=== PATIENT | male | born 1950 | race Caucasian/White ===

== ENCOUNTER 2017-07-04 07:43 | Day surgery (SDC) | payer MEDICARE ==
[~2017-07-04] VITALS: Ht 182.9 cm; Wt 105.1 kg
[2017-07-04] MEDS ORDERED: IOHEXOL 350 MG/ML 100 ML BTL (for Cath Lab) OTHER ONE (07:44)
[2017-07-04] MEDS ORDERED: IOHEXOL 350 MG/ML 50 ML BTL (for Cath Lab) OTHER ONE (07:44)
[2017-07-04 08:32] VITALS: BP 192/97; PULSE 77; RESP 18; TEMP 98.1; O2SAT 96
[2017-07-04] MEDS ORDERED: FISHCAP4 PO (08:42)
[2017-07-04] MEDS ORDERED: HYDR25TA5 PO (08:42)
[2017-07-04] MEDS ORDERED: NITR0.4S SL (08:42)
[2017-07-04] MEDS ORDERED: LOSA100T PO (08:42)
[2017-07-04] MEDS ORDERED: ASPI325T33 PO (08:42)
[2017-07-04] MEDS ORDERED: ATOR20TA15 PO (08:42)
[2017-07-04 08:59] LABS: BASOPHIL % 0.9 % (0.0-2.0); EOSINOPHIL # 0.1 TH/MM3 (0-0.4); EOSINOPHIL % 1.3 % (0.0-4.0); HEMATOCRIT 43.4 % (39.0-51.0); HEMO FLAGS DIFF FINAL; LYMPH % 31.6 % (9.0-44.0); LYMPHOCYTE # 1.7 TH/MM3 (1.0-4.8); MEAN CELL VOLUME 89.5 FL (80.0-100.0); MEAN CORPUSCULAR HEMOGLOBIN 30.1 PG (27.0-34.0); MEAN CORPUSCULAR HGB CONC 33.7 % (32.0-36.0); MONO % 10.8 % (0.0-8.0); NEUT % 55.4 % (16.0-70.0); PLATELET COUNT 164 TH/MM3 (150-450); RED BLOOD COUNT 4.85 MIL/MM3 (4.50-5.90); RED CELL DISTRIBUTION WIDTH 13.7 % (11.6-17.2); WHITE BLOOD COUNT 5.4 TH/MM3 (4.0-11.0)
[2017-07-04 09:08] LABS: PROTHROMBIN TIME - PATIENT 11.6 SEC (9.8-11.6)
[2017-07-04 09:14] LABS: BICARBONATE 27.3 MEQ/L (21.0-32.0); POTASSIUM 3.5 MEQ/L (3.5-5.1)
[2017-07-04] MEDS ORDERED: ASPIRIN 325 MG TAB PO SCH (09:30)
[2017-07-04] MEDS ORDERED: NS 1000P @30 MLS/HR (KVO) IV SCH (09:30)
[2017-07-04] MEDS ORDERED: MIDAZOLAM HCL 2 MG/2 ML VIAL ONE (10:56)
--- NOTE | 2017-07-04 11:50 | CATHPROC ---
[employer] HIS Report Study Information Study Number Admission Scheduled Start Study Start [id number] Jul 04 2017 7:43AM 07/04/2017 Jul 04 2017 10:35AM Marydel Service Cardiac Catheterization Admit Source Facility Department Other [facility] - Log Loader Physician and Clinical Staff Initial Marike Valentin Wire Charger Jess Figueredo,TOMASZ Recorder Loan Cunha,RT(R) Scrub Chaka Trujillo RCIS(BS) Procedures Performed Procedure Location (Site) Vessel Name Angiogram LV LV Ventricle Coronary Angiograms LCA Left Coronary Coronary Angiograms RCA Right Coronary Equipment Time Broomcorn Grader Description Size Mfg Part Number Used/Scraped [id number] 10:55 NOEL PARIKH SWAN DEBORAH CATHETER FR 7 Used *[id number] TRANSDUCER, TRUWAVE [id number] 10:55 NOEL PARIKH * Used W/STOCKCOCK *[id number] TRANSDUCER, TRUWAVE [id number] 10:55 NOEL PARIKH * Used W/STOCKCOCK *[id number] [id number] *[id number] [id number] *[id number] [id number] *[id number] PIGTAIL ANG. 145 INFINITI 534-652S CATHETER *[id number] 11:32 DAIG/[facility]. [facility]UL[facility] MEDICAL ANGIOSEAL, FR6 VIP FR 6 Used *[id number] 10:55 [employer] PACK, CCL CUSTOM * Used *[id number] 10:55 [employer] PACER PEN, SKIN DUAL W/ RULER * Used *[id number] PSI-6F-11- 11:03 [employer] MEDICAL SHEATH, FR6.5 PRELUDE 11CM FR 6.5 038ACT Used *[id number] PSI-7F-11- 11:07 [employer] MEDICAL SHEATH, FR7.5 PRELUDE 11CM FR 7.5 11CM Used [id number] 10:55 [employer] MEDICAL WIRE, 3MMJ .035 180CM 180CM Used *[id number] 10:55 NAM[employer] MANIFOLD, 2 PORT * Used *[id number] 10:55 NAM[employer] MANIFOLD, 4 PORT * Used *[id number] 10:55 [employer] OMNIPAQUE, 350 MG, 100ML 100ML [id number] Used [id number] 10:55 [place] [employer] BL[employer]ET,WARM AIR CCL * Used *[id number] Equipment Model, Serial, Lot Number and Expiration Data Description Model Number Serial Number Lot Number Expiration Date FRANSISCA BARCLAY [facility] [id number] 04-18-2018 History: Current Medications Medication Dosage/Unit Route Frequency Last Date/Time Taken Statins (any) ASA History: Allergies Allergy Reaction clopidogrel History: Risk Factors Family History of Hypertension Dyslipidemia Previous [place] Previous Heart Failure Premature CAD Yes Yes No No No Prior Valve Prior PCI Prior PCIDate Prior CABG Surgery No Yes 01/25/2012 No Cerebrovascular Peripheral Artery Chronic Lung On Dialysis Diabetes Disease Disease Disease No No No No No History: Stress Tests Stress or Imaging Studies Performed No History: Other Current Smoker Method Quit Packs a Day Years Used Pack Years No Cigarettes 40 Years Ago 1 15 15 Labs Hgb (g/dl) Hct (%) WBC (l/cumm) Platelets (thousands) 11.60-17.00 35.00-51.00 4.00-11.00 150.00-450.00 14.6 43.4 5.4 164 Glucose (mg/dl) BUN (mg/dl) Creatinine (mg/dl) BUN:Creatinine (1:x) 74.00-106.00 7.00-18.00 0.50-1.30 10.00-20.00 116 19 1.1 17.3 Na (meq/l) K (meq/l) 136.00-145.00 3.50-5.10 138 3.5 INR (PTT:PT) 0.90-1.10 1 CPK-MB (ng/ML) 0.50-3.60 Not Drawn Medication Medication Total Dose (Bolus/Oral) Medication Total Dosage/Unit 1% XYLOCAINE 20 mL VERSED 1 mg Medications (Bolus/Oral) Medication Time Given Dosage/Unit Administered By Reason 07/04/2017 10:58:00 VERSED 1 mg Jess Figueredo AM 1 mg VERSED given in lab by Jess Figueredo RN in Left Antecubital via Peripheral IV. Ordered by Markie Colmenares. 07/04/2017 10:59:00 1% XYLOCAINE 20 mL Jess Figueredo AM 20 mL 1% XYLOCAINE given in lab by Jess Figueredo, TOMASZ in Right Groin via Subcutaneous. Ordered by Markie Sands. Medication (Drip) Medication Time Given Dosage/Unit Concentration/Unit Diluent (ml) Solution 07/04/2017 10:46:03 IV Solutions 50 mL (IV) NaCl .9 AM IV Solutions given in lab by Jess Figueredo RN in Left Antecubital via Peripheral IV. Pump/Drip Liam w using NaCl .9. Ordered by Markie Aguirre. Initial Case Assessment Cardiovascular HR Rhythm Chest Pain 65 sr 0 Edema Present Skin color Skin None Normal Warm Dry Circulatory - Right Pulses Dorsalis Pedis Femoral 3 3 Scale (0,1,2,3,4,d) Circulatory - Left Pulses Dorsalis Pedis Femoral 3 3 Scale (0,1,2,3,4,d) Neurological State Oriented to time-place- Alert Moves all extremities person Respiration - General Respiration Rate SpO2 (%) (B/min) 12 98 Chronological Log Time Study Chronological Log 10:42:00 MD arrived. 10:42:32 Patient arrived via Bed. 10:45:52 Patient Name, D.O.B, / Armband Verified By R.N. 10:45:53 Consent signed by the physician and the patient and verified by the Log Loader staff. 10:45:53 Pre-op and post- op instructions given; patient acknowledges understanding of instruction s. Verbal Stimulation=~VERBAL~ Physical Stimulation=~PHYSICAL~ Airway=~AIRWAY~ Respiration=~RESP IRATION~ 10:45:54 TOTAL=~TOTAL~. (0=absent, 1=limited, 2=present) 10:45:57 Patient has been NPO for Less than 6Hrs. 10:45:58 Skin Breakdown- none per pt 10:45:58 Patient Warmer Placed on the Table. 10:46:02 A # 20 IV was noted in the Antecubital (left). Grade = 0 IV Solutions given in lab by Jess Figeuredo, RN in Left Antecubital via Peripheral IV. Pump/Dr ip Flow using NaCl .9. 10:46:03 Ordered by Markie Aguirre. 10:46:04 History and physical on the chart or being dictated. Assessment: Initial Case, HR=65 BPM, Rhythm=sr, Chest Pain=0, Edema=None, Color=Normal, Skin = Warm, Dry Right Pulses: Harrison Ped=3, Femoral=3 10:46:05 Left Pulses: Harrison Ped=3, Femoral=3 Neurological: State=Alert, Ox3, BOJORQUEZ Respiration: Resp=12 B/min, SpO2=98 % 10:50:00 Bilateral groins prepped with 2% chlorhexidine, and draped after a 3 minute waiting time. Vitals capture started with the following parameters, Patient=Adult, Interval=5 min, Initial Pr wvfrhs=367 mmHg, 10:55:28 Deflation Rate=5 mmHg, Cuff placed on Left Arm 10:55:34 Reference ECG taken 10:56:45 HR=74 bpm, BLWW=588/104 mmhg, SpO2=99.0 %, Resp=18 B/min Time Out. Correct patient, correct procedure, correct physician, power injector loaded, or not loaded with contrast with 10:57:07 surgical team present. Time Out Concurred by MD and individual staff in procedure. 10:58:00 1 mg VERSED given in lab by Jess Figueredo RN in Left Antecubital via Peripheral IV. Orde red by Markie Aguirre. 10:58:00 Case Start 10:59:00 20 mL 1% XYLOCAINE given in lab by Jess Figueredo RN in Right Groin via Subcutaneous. Ord ered by Markie Aguirre. 11:01:11 HR=72 bpm, AFIX=985/86 mmhg, HbO3=497.0 %, Resp=11 B/min 11:01:58 Access site was Right Femoral Artery. 11:02:06 A SHEATH, FR6.5 PRELUDE 11CM FR 6.5 was advanced into the Fem Art (right) using the Percuta neous technique. 11:02:51 Pressure channel 1 zeroed. 11:06:10 HR=62 bpm, XHGV=546/81 mmhg, SpO2=98.0 %, Resp=9 B/min 11:06:30 Access site was Right Femoral Vein. A SHEATH, FR7.5 PRELUDE 11CM FR 7.5 11CM was advanced into the Fem Vein (right) using the Percu taneous 11:06:43 technique. A SWAN DEBORAH CATHETER FR 7 was advanced over a wire. OMNIPAQUE, 350 MG, 100ML 100ML was used for 11:10:25 injections. Recorded Pressure: RA, HR=61, Condition=Condition 1 11:11:02 (Right Atrium) RA 11:11:07 HR=61 bpm, DEIY=599/81 mmhg, SpO2=99.0 %, Resp=12 B/min Recorded Pressure: RV, HR=61, Condition=Condition 1 11:11:24 (Right Ventricle) RV Recorded Pressure: MPA, HR=62, Condition=Condition 1 11:11:43 (Main Pulmonary Artery) MPA 18/08/21 Recorded Pressure: PCW, HR=60, Condition=Condition 1 11:12:05 (Pulmonary Capillary Wedge) PCW Thermo CO: CO=5.6 l/m, HR=60 bpm, Condition=Condition 1. Used in calculation. 11:13:47 Equipment: Description and Size=SWAN DEBORAH CATHETER FR 7, Type=Bath Probe, CC=0.579 Injectant: Temp=19.0 - 22.0 Celsius, Volume=10.0 ml Thermo CO: CO=5.6 l/m, HR=60 bpm, Condition=Condition 1. Used in calculation. 11:14:31 Equipment: Description and Size=SWAN DEBORAH CATHETER FR 7, Type=Bath Probe, CC=0.579 Injectant: Temp=19.0 - 22.0 Celsius, Volume=10.0 ml 11:15:08 [place] Deborah Catheter Removed A PIGTAIL ANG. 145 INFINITI CATHETER FR 6 was advanced over a wire. OMNIPAQUE, 350 MG, 100ML 10 0ML was 11:16:03 used for injections. 11:16:06 HR=61 bpm, NRXK=821/87 mmhg, SpO2=98.0 %, Resp=8 B/min Recorded Pressure: LV, HR=61, Condition=Condition 1 11:17:05 (Left Ventricle) LV 144/1/14 11:19:16 The LV was injected at 10 cc/sec for a total of 40. OMNIPAQUE, 350 MG, 100ML 100ML used. Recorded Pressure: LV, Ao, HR=78, Condition=Condition 1 11:20:09 (Left Ventricle) LV 158/7/19, (Aorta) Ao 163/88/119 11:20:26 Catheter was removed 11:21:09 HR=73 bpm, HIVF=138/80 mmhg, SpO2=99.0 %, Resp=10 B/min A JL 5.0 INFINITI CATHETER FR 6 was advanced over a wire. OMNIPAQUE, 350 MG, 100ML 100ML was us ed for 11:21:21 injections. 11:23:16 The LCA was injected and visualized at various angles. OMNIPAQUE, 350 MG, 100ML 100ML used . Recorded Pressure: Ao, HR=75, Condition=Condition 1 11:24:08 (Aorta) Ao 140/69/96 11:26:10 HR=81 bpm, JHSN=345/80 mmhg, SpO2=99.0 %, Resp=11 B/min 11:27:16 Catheter was removed A 3DRC INFINITI CATHETER FR 6 was advanced over a wire. OMNIPAQUE, 350 MG, 100ML 100ML was used for 11:27:26 injections. 11:29:07 The RCA was injected and visualized at various angles. OMNIPAQUE, 350 MG, 100ML 100ML used . 11:30:10 Catheter was removed 11:30:33 An injection in the Fem Art (right) was made through the SHEATH, FR6.5 PRELUDE 11CM FR 6.5. 11:31:11 HR=80 bpm, FSRN=510/78 mmhg, ZmV7=903.0 %, Resp=18 B/min 11:32:12 ANGIOSEAL, FR6 VIP FR 6 placement in the Fem Art (right) 11:33:39 Case End 11:36:10 HR=72 bpm, EODB=599/87 mmhg, SpO2=97.0 %, Resp=22 B/min 11:40:57 Vitals capture stopped. 11:41:09 Venous Sheath left in place, will be removed in Holding Area 11:41:22 Sterile dressing applied to site 11:41:26 No case complications noted. 11:41:29 Cine recording checked. 11:41:31 Bedside Report will be given. 11:42:32 A Left and Right Heart Cath was performed. 11:42:52 Patient moved to [facility] End Study - Contrast Media Used In Study Contrast Total Opened (mL) Total Used (mL) Total Wasted (mL) Omnipaque 150 150 0 End Study - Maximum Contrast Load Max Contrast Load (mL) 477.7 End Study - Radiation Exposure Fluoro Time (minutes) 3.5 End Study - Patient Disposition Complications Transferred To Interventional Outcome No Telemetry Bed No attempt made
[2017-07-04] MEDS ORDERED: SODIUM CHLOR 0.9% 1000 ML INJ 1,000 ML IV SCH (11:52)
[2017-07-04] MEDS ORDERED: ONDANSETRON HCL 4 MG/2 ML VIAL IV PUSH PRN (12:00)
[2017-07-04] MEDS ORDERED: MISC INFORMATION XX ONE (12:00)
--- NOTE | 2017-07-04 12:10 | MA ---
cc: SHAHRAM OCHOA SOHIT K. MD WILSON, VANCE E. M.D. DATE 07/04/2017 PROCEDURE PERFORMED Left heart catheterization, right heart catheterization, left ventriculography, coronary angiography, right femoral angiography with Angio-Seal placement. BRIEF HISTORY Chinmay Weston is a 66-year-old man followed by Dr. Ochoa. He has had mitral regurgitation getting progressively worse and is now needing surgery to repair or replace his mitral valve. DESCRIPTION OF PROCEDURE The patient was brought to the cardiac laborer stores in a fasting state. The right groin was prepped and draped in sterile fashion. Using 1% lidocaine for local anesthesia a 6.5-Nepali sheath was inserted in the right femoral artery and right femoral vein requiring only single front wall sticks. Right heart catheterization was then performed in standard fashion using a [place]-Kyung catheter. Cardiac outputs were obtained by thermodilution technique. The [place]-Kyung catheter was then removed. Left ventricular pressure was then recorded using a pigtail catheter followed by left ventriculography and then a pullback. Coronary angiography was then completed using a left 5-Chirag for the left coronary artery and a 3DRC for the right coronary artery. Angiography of the right femoral artery was then performed via the sheath followed by uncomplicated Angio-Seal placement. The venous sheath is being pulled manually. Cardiothoracic surgeon Dr. Garza was consulted for surgery. There were no complications. ESTIMATED BLOOD LOSS 5 cc. TOTAL CONTRAST LOAD 150 cc. FINDINGS I. HEMODYNAMICS: Right atrial pressure was 6/2 with mean of 1. Right ventricular pressure was 30/1 with an end-diastolic pressure of 14. Pulmonary artery pressure was 30/11 with a mean of 21. Pulmonary capillary wedge pressure at A-wave was 15, V-waves of 23 and a mean of 14. Left ventricular pressure was 158/7 with an end-diastolic pressure of 19. Aortic pressure was 140/69 with a mean of 96. During pullback from the left ventricle to the aorta there was no gradient. II. LEFT VENTRICULOGRAPHY Left ventriculography shows a dilated left ventricle with an ejection fraction about 50% with 4+ mitral regurgitation. There is mild to moderate coronary calcification. III. CORONARY ANGIOGRAPHY Left main coronary artery has about 20% ostial disease. The left main bifurcates into the LAD and circumflex vessels. The LAD has about 30% proximal stenosis. There is a stent spanning the first septal banquet attendant branch which is patent. The mid-LAD has two 70% stenoses. There is a diagonal branch that comes off very early from the LAD that is small caliber but has 80% disease and may or may not be graftable based on its size. The distal LAD is small in caliber but graftable. The circumflex artery has a very tiny marginal branch and then a 80-90% stenosis and then after that the circumflex bifurcates to a small distal vessel and an obtuse marginal branch which appears large enough to be grafted but is somewhat small caliber. The right coronary artery is dominant and has several stents visible in the mid-location. The mid vessel is diffusely diseased and there is one spot with 80% stenosis. Distally the right coronary artery has good caliber and gives off a very large posterolateral branch and medium-sized posterior descending artery branch. The distal right coronary artery is an excellent target for bypass. CONCLUSION 1. Hemodynamics are notable for a mildly elevated left ventricular end-diastolic pressure and tall V-waves on the wedge tracing. Cardiac output was 5.6 liters per minute. 2. LV ejection fraction about 50% with mild dilatation. 3. 4+ mitral regurgitation. 4. Three-vessel coronary artery disease. RECOMMENDATIONS Bypass surgery with graft to the LAD, circumflex marginal branch and distal right coronary artery and possibly also the diagonal with mitral valvular either repair or replacement. MD MARINA Roberts/TOLU /11:46 AM /11:53 AM
--- NOTE | 2017-07-04 15:54 | PD.CAR.PN ---
CVT Progress Note Subjective/Hospital Course: sts data discussed with pt RISK SCORES About the STS Risk Calculator Procedure: MV Replacement + CAB Risk of Mortality: 3.082% Morbidity or Mortality: 28.676% Long Length of Stay: 13.82% Short Length of Stay: 17.243% Permanent Stroke: 2.3% Prolonged Ventilation: 20.082% DSW Infection: 1.031% Renal Failure: 9.079% Reoperation: 11.879% Objective: Vital Signs Date Time Temp Pulse Resp B/P (MAP) Pulse Ox O2 Delivery O2 Flow Rate FiO2 07/04/17 11:55 96 Room Air 07/04/17 11:53 99 Room Air 07/04/17 08:32 98.1 77 18 192/97 (128) 96 Labs: Laboratory Tests Test 07/04/17 08:20 White Blood Count 5.4 TH/MM3 (4.0-11.0) Red Blood Count 4.85 MIL/MM3 (4.50-5.90) Hemoglobin 14.6 GM/DL (13.0-17.0) Hematocrit 43.4 % (39.0-51.0) Mean Corpuscular Volume 89.5 FL (80.0-100.0) Mean Corpuscular Hemoglobin 30.1 PG (27.0-34.0) Mean Corpuscular Hemoglobin Concent 33.7 % (32.0-36.0) Red Cell Distribution Width 13.7 % (11.6-17.2) Platelet Count 164 TH/MM3 (150-450) Mean Platelet Volume 9.3 FL (7.0-11.0) Neutrophils (%) (Auto) 55.4 % (16.0-70.0) Lymphocytes (%) (Auto) 31.6 % (9.0-44.0) Monocytes (%) (Auto) 10.8 % (0.0-8.0) Eosinophils (%) (Auto) 1.3 % (0.0-4.0) Basophils (%) (Auto) 0.9 % (0.0-2.0) Neutrophils # (Auto) 3.0 TH/MM3 (1.8-7.7) Lymphocytes # (Auto) 1.7 TH/MM3 (1.0-4.8) Monocytes # (Auto) 0.6 TH/MM3 (0-0.9) Eosinophils # (Auto) 0.1 TH/MM3 (0-0.4) Basophils # (Auto) 0.0 TH/MM3 (0-0.2) CBC Comment DIFF FINAL Differential Comment Prothrombin Time 11.6 SEC (9.8-11.6) Prothromb Time International Ratio 1.0 RATIO Activated Partial Thromboplast Time 27.0 SEC (24.3-30.1) Blood Urea Nitrogen 19 MG/DL (7-18) Creatinine 1.10 MG/DL (0.60-1.30) Random Glucose 116 MG/DL (74-106) Calcium Level 8.9 MG/DL (8.5-10.1) Sodium Level 138 MEQ/L (136-145) Potassium Level 3.5 MEQ/L (3.5-5.1) Chloride Level 103 MEQ/L (98-107) Carbon Dioxide Level 27.3 MEQ/L (21.0-32.0) Anion Gap 8 MEQ/L (5-15) Estimat Glomerular Filtration Rate 67 ML/MIN (>89) Result Diagram: 07/04/1781907/04/17819 Nessa Hall Jul 04, 2017 15:54
--- NOTE | 2017-07-04 15:59 | RADRPT ---
EXAM DATE/TIME: 07/04/2017 15:20 [facility] COMPARISON: No previous studies available for comparison. INDICATIONS : PreOp MVR/ CABG. MEDICAL HISTORY : Hypertension. Hyperlipidemia. Skin cancer. Angina. Coronary artery disease. SURGICAL HISTORY : Cardiac stents. ENCOUNTER: Initial ACUITY: 1 day PAIN SCORE: 0/10 LOCATION: Bilateral legs. GREATER SAPHENOUS VEIN THIGH: PROXIMAL: Right 5 mm Left 9 mm MID: Right 3 mm Left 4 mm DISTAL: Right 3 mm Left 3 mm CALF: PROXIMAL: Right 3 mm Left 2 mm MID: Right 1 mm Left 2 mm DISTAL: Right 2 mm Left 2 mm FINDINGS: The venous system of the lower extremities are patent by color Doppler imaging. Measurements of the leg veins (in mm) are listed above. CONCLUSION: 1. Vein mapping as above. 2. No DVT identified. Bobby Polanco MD on July 04, 2017 at 15:57 Board Certified Radiologist. This report was verified electronically.
--- NOTE | 2017-07-04 16:07 | RADRPT ---
EXAM DATE/TIME: 07/04/2017 15:10 [facility] COMPARISON: No previous studies available for comparison. INDICATIONS : PreOp MVR/ CABG. MEDICAL HISTORY : Hypertension. Hyperlipidemia. Skin cancer. Angina. Coronary artery disease. SURGICAL HISTORY : Cardiac stents. ENCOUNTER: Initial ACUITY: 1 day PAIN SCORE: 0/10 LOCATION: Bilateral legs. TECHNIQUE: Venous ultrasound of the left and right leg was performed from the inguinal ligament to the proximal calf. Real-time, color Doppler and spectral tracing, compression and augmentation techniques were us ed. FINDINGS: RIGHT LEG: There is normal compressibility of the deep venous system from the inguinal region to the proximal ca lf. No echogenic clot is seen in the lumen of the common femoral, femoral, popliteal, and posterior tibial veins. There is a normal response of the venous system to proximal and distal augmentation an d respiration. LEFT LEG: There is normal compressibility of the deep venous system from the inguinal region to the proximal ca lf. No echogenic clot is seen in the lumen of the common femoral, femoral, popliteal, and posterior tibial veins. There is a normal response of the venous system to proximal and distal augmentation an d respiration. CONCLUSION: 1. No DVT identified. Bobby Polanco MD on July 04, 2017 at 16:05 Board Certified Radiologist. This report was verified electronically.
--- NOTE | 2017-07-04 16:47 | RADRPT ---
EXAM DATE/TIME: 07/04/2017 16:16 [facility] COMPARISON: No previous studies available for comparison. INDICATIONS : Evaluate for pneumonia, pneumothorax, or communicable disease. Pre op CABG. MEDICAL HISTORY : None. SURGICAL HISTORY : None. ENCOUNTER: Initial ACUITY: 1 day PAIN SCORE: 0/10 LOCATION: Bilateral chest FINDINGS: AP and lateral views of the chest demonstrate a normal-sized cardiac silhouette. There is no effusion , consolidation, or pneumothorax. The bones and soft tissues demonstrate no acute abnormality. CONCLUSION: No acute cardiopulmonary abnormality is identified. Amari Cohen MD on July 04, 2017 at 16:45 Board Certified Radiologist. This report was verified electronically.
--- NOTE | 2017-07-04 21:39 | EKG ---
Date Performed: 07/04/2017 Time Performed: 09:07:14 PTAGE: 66 years EKG: Sinus rhythm with PVC(s). Borderline ECG NO PREVIOUS TRACING DOCTOR: Tres Glass Interpretating Date/Time 07/04/2017 21:38:05
--- NOTE | 2017-07-05 08:22 | MB ---
cc: CONNOR ABBOTT MD DATE OF CONSULTATION 07/04/2017 DATE OF 1950 HISTORY OF THE PRESENT ILLNESS A very pleasant 66-year-old male, a patient of Dr. Adriel Peña and Dr. Pérez Ochoa who apparently has had history of mitral valve regurgitation, has been followed over the past 10 years and went in for regular checkup, when they did an echocardiogram that showed worsening mitral regurgitation. 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 He also had a carotid ultrasound at that time which was unremarkable. He underwent cardiac cath today by Dr. Aguirre which showed 20% left main disease, proximal LAD 30%, mid distal LAD 70%. The diagonal 80%, the circ had 90%. The RCA 80% mid lesion. We were consulted to evaluate for coronary artery bypass grafting. The cath showed an EF 50%, 4+ MR. The patient had been relatively active up until he had his echo and was told to basically take it easy. He has not had any chest pain. No angina. No significant shortness of breath. PAST MEDICAL HISTORY Significant for: 1. Coronary artery disease. 2. Hyperlipidemia. 3. Hypertension. 4. Pre diabetes. PAST SURGICAL HISTORY Surgeries include: 1. Hernia repair. 2. He has a total of three stents. He has got a stent to the LAD, two stents to the RCA. ALLERGIES INCLUDE PLAVIX WHICH CAUSES ARTHRITIC TYPE DISCOMFORT. NO RASHES OR ANGIOEDEMA. FAMILY HISTORY Mother and father both in their 90s from old age. SOCIAL HISTORY The patient , has three children. Retired real estate loan officer. Smoked for about 15 years, quit in the . Drinks about half a bottle of wine per evening and a couple of beers per day. REVIEW OF SYSTEMS GENERAL: No night sweats, fever, heat and cold intolerance. SKIN: No psoriasis, itching or hives. HEENT: No blurred vision, hearing loss. RESPIRATORY: No cough, shortness of breath. CARDIOVASCULAR: No anginal discomfort. No paroxysmal nocturnal dyspnea. GASTROINTESTINAL: No diarrhea, vomiting. GENITOURINARY: No burning, frequency, urgency. CENTRAL NERVOUS SYSTEM: No history of TIA, CVA, seizure disorder. ENDOCRINE: No history of diabetes and/or hypothyroidism. PHYSICAL EXAMINATION VITAL SIGNS: Blood pressure 190/90, heart rate 70, temperature max 98.1, room air sat of 98%. GENERAL: Patient is awake, alert in no acute distress. HEENT: Head is normocephalic, atraumatic. Pupils equal and reactive. Oral mucosa pink, moist. NECK: Supple. No JVD. LUNGS: His lungs are clear to auscultation. No wheezes, rhonchi or rales. CARDIOVASCULAR: Heart sounds S1-S2, regular rate and rhythm. There is a holosystolic mitral regurgitation murmur. He also has some bilateral carotid bruits present. ABDOMEN: His abdomen is soft, round, nontender. No masses or organomegaly. EXTREMITIES: No cyanosis, clubbing or edema. Please add to above. LABORATORY DATA Lab work shows hemoglobin 14, hematocrit of 43, white cell count 5.4, platelet count 164. Sodium 138, potassium 3.5, BUN of 19, creatinine 1.10. INR 1.0. IMAGING Radiological exams pending to include ultrasound of the lower extremities and vein mapping. Also further lab work and testing. At this time the cardiac films have been reviewed by Dr. Connor Abbott. Procedures, alternatives, risks have been discussed with the patient. Planning will be for surgery mitral valve repair versus replacement, coronary artery bypass grafting x3, July 26, 2017. He will need to have repeat labs done prior surgery. STS data documented in the electronic record. We will also try to obtain the CD from Dr. Ochoa's office. DICTATED BY: LUCIA Nguyễn Connor HAQUE/ANJUM /3:56 PM /8:19 AM
[2017-07-05 15:44] LABS: HEMOGLOBIN A1a 1.2 %; HEMOGLOBIN A1b 0.8 %; HEMOGLOBIN F 1.2 %; HEMOGLOBIN LA1C 1.7 %; HEMOGLOBIN P3 3.8 %
--- NOTE | 2017-07-06 10:57 | RSPPFT ---
DATE OF PROCEDURE: 07/04/17 COMMENTS: Spirometry with FVC of 2.5, FEV1 of 1.7 and FEV1/FVC ratio at 69%. Post-bronchodilator study was not performed. IMPRESSION: 1. Moderately severe airways obstruction.
== END 2017-07-04 15:35 | disposition home health service (06) ==
LOC: HDIC 07:43 → HCAT 07:43
PROVIDERS: ATTEND Internal Medicine Cardiovascular Disease
DX: I25.10 Atherosclerotic heart disease of native coronary artery without angina pectoris (principal); I34.0 Nonrheumatic mitral (valve) insufficiency; I10 Essential (primary) hypertension; E78.5 Hyperlipidemia, unspecified; R73.03 Prediabetes; Z01.818 Encounter for other preprocedural examination; Z95.5 Presence of coronary angioplasty implant and graft; Z85.828 Personal history of other malignant neoplasm of skin
CPT/HCPCS: 71020; 80048; 83036; 85025; 85610; 85730; 86850; 86900; 86901; 87641; 93005; 93453; 93970; 93998; 94010; C1769; C1893; J2250; Q9967

== ENCOUNTER 2017-07-26 05:36 | Inpatient (IN) | payer MEDICARE ==
[2017-07-26] VITALS (14 sets, daily range): BP systolic 86–142; BP diastolic 53–83; PULSE 74–85; RESP 10–20; TEMP 97.4–99.8; O2SAT 89–97
[~2017-07-26] VITALS: Ht 182.9 cm; Wt 110.0 kg
[~2017-07-26 05:36] MED LIST: ASPI325T33 PO; ATOR20TA15 PO; FISHCAP4 PO; HYDR25TA5 PO; LOSA100T PO; NITR0.4S SL
[2017-07-26] MEDS ORDERED: ceFAZolin 2 GM PREMIX 50 ML IV SCH (06:00)
[2017-07-26] MEDS ORDERED: METOPROLOL TARTRATE 25 MG TAB PO PRN (06:00)
[2017-07-26] MEDS ORDERED: INSULIN HUMAN REGULAR 1,000 UNITS/10 ML VIAL SQ PRN (06:00)
[2017-07-26] MEDS ORDERED: SODIUM CHLORID 0.9% 500 ML IV PRN (06:00)
[2017-07-26] MEDS ORDERED: CHLORHEXIDINE GLUCONATE 2 % 1 PACK (2 CLOTHS) TOPICAL PRN (06:00)
[2017-07-26] MEDS ORDERED: INSULIN REGULAR 100 UNITS in NS 100 ML IV PRN (06:00)
[2017-07-26] MEDS ORDERED: PAPAVERINE 60 MG-NITROGLYCERIN 100 MCG-DILTIAZEM 100 MG in NS 100 ML IRRIGATION SCH ×4 (06:00)
[2017-07-26] MEDS ORDERED: POVIDONE IODINE 5% (ANTISEPSIS KIT) 4 APPLICATIONS EACH NARE PRN (06:00)
[2017-07-26] MEDS ORDERED: METOPROLOL TARTRATE 25 MG TAB PO SCH (06:00)
[2017-07-26] MEDS ORDERED: LACTATED RINGER'S 1000 ML IV PRN (06:00)
[2017-07-26] MEDS ORDERED: CEFAZOLIN 500 MG in NS IRR BTL 500 ML IRRIGATION SCH (06:00)
[2017-07-26] MEDS ORDERED: CHLORHEXIDINE GLUCONATE 4% SOLN 120 ML BTL TOPICAL SCH (06:00)
[2017-07-26] MEDS ORDERED: SODIUM CHLORIDE 0.9% FLUSH 10 ML FLUSH IV FLUSH PRN ×3 (06:00→14:00)
[2017-07-26] MEDS ORDERED: DEXTROSE 50% IN WATER 50 ML VIAL(D50) IV PUSH PRN (06:00)
[2017-07-26] MEDS ORDERED: ceFAZolin INJ 1,000 MG VIAL ONE (06:12)
[2017-07-26] MEDS ORDERED: HEPARIN SODIUM - SQ 10,000 UNITS/ML VIAL ONE (06:12)
[2017-07-26] MEDS ORDERED: VANCOMYCIN HCL 1000 MG VIAL ONE (06:13)
[2017-07-26] MEDS ORDERED: ceFAZolin 2 GM PREMIX 50 ML ONE (06:13)
[2017-07-26] MEDS ORDERED: TRANEXAMIC ACID INJ 1,000 MG/10 ML AMP ONE ×3 (07:02→08:00)
[2017-07-26] MEDS ORDERED: SODIUM CHLORIDE 0.9% INJ 100 ML IV ONE (12:00)
[2017-07-26] MEDS ORDERED: NORMOSOL R INJ 2,000 ML IV ONE (12:00)
[2017-07-26] MEDS ORDERED: SODIUM CHLORID 0.9% 500 ML INJ 500 ML IV ONE (12:00)
[2017-07-26] MEDS ORDERED: fentaNYL CITRATE 2500 MCG/50 ML VIAL IV ONE (12:00)
[2017-07-26] MEDS ORDERED: MIDAZOLAM HCL 2 MG/2 ML VIAL IV ONE (12:00)
[2017-07-26] MEDS ORDERED: LACTATED RINGER'S 1000 ML INJ 2,000 ML IV ONE (12:00)
[2017-07-26] MEDS ORDERED: SODIUM CHLOR 0.9% 250 ML INJ 500 ML IV ONE (12:00)
[2017-07-26] MEDS ORDERED: DEXMEDETOMIDINE HCL 200 MCG/2 ML VIAL ONE (13:24)
[2017-07-26] MEDS ORDERED: SUGAMMADEX SODIUM 200 MG/2 ML VIAL IV PUSH ONE ×2 (13:24)
[2017-07-26] MEDS ORDERED: LACTATED RINGER'S 1000 ML INJ 500 ML IV PRN (13:48)
[2017-07-26] MEDS ORDERED: DOBUTamine PREMIX DRIP 250 ML IV SCH (13:48)
[2017-07-26] MEDS ORDERED: ACETAMINOPHEN 650 MG SUPP RECTAL PRN (14:00)
[2017-07-26] MEDS ORDERED: POTASSIUM CHLOR 20 MEQ PREMIX 100 ML IV PRN ×2 (14:00)
[2017-07-26] MEDS ORDERED: RESP: ALBUTEROL 2.5 MG/IPRATROPIUM 0.5 MG NEB (PRN) NEB (14:00)
[2017-07-26] MEDS ORDERED: MORPHINE SULFATE 4 MG/ML INJ IV PUSH PRN (14:00)
[2017-07-26] MEDS ORDERED: DOPamine INJ PREMIX 500 ML IV PRN (14:00)
[2017-07-26] MEDS ORDERED: CALCIUM CHLORIDE 10% 1 GRAM/10 ML VIAL IV PUSH PRN (14:00)
[2017-07-26] MEDS ORDERED: ACETAMINOPHEN 325 MG TAB PO PRN (14:00)
[2017-07-26] MEDS ORDERED: SODIUM BICARBONATE 8.4% SOLN 50 MEQ/50 ML VIAL IV PUSH PRN ×2 (14:00)
[2017-07-26] MEDS ORDERED: DEXMEDETOMIDINE INJ 200 MCG in SODIUM CHLORIDE 0.9% INJ 50 ML IV PRN (14:00)
[2017-07-26] MEDS ORDERED: CLEVIDIPINE INJ 50 ML IV PRN (14:00)
[2017-07-26] MEDS ORDERED: oxyCODONE/ACETAMINOPHEN 5 MG/325 MG TAB PO PRN (14:00)
[2017-07-26] MEDS ORDERED: METOPROLOL TARTRATE 5 MG/5 ML VIAL IV PUSH PRN (14:00)
[2017-07-26] MEDS ORDERED: CALCIUM CHLORIDE INJ 1 GM in SODIUM CHLORIDE 0.9% INJ 100 ML IV PRN (14:00)
[2017-07-26] MEDS ORDERED: DEXTROSE 50% IN WATER 50 ML SYRINGE IV PUSH PRN (14:00)
[2017-07-26] MEDS ORDERED: PHENYLEPHRINE INJ 40 MG in DEXTROSE 5% IN WATE 500 ML INJ 496 ML IV PRN ×2 (14:00)
[2017-07-26] MEDS ORDERED: MAGNESIUM SULFATE INJ 2 GM in SODIUM CHLORIDE 0.9% INJ 100 ML IV PRN ×4 (14:00)
[2017-07-26] MEDS ORDERED: POTASSIUM CHLORIDE 20 MEQ CONTROLLED RELEASE TAB PO PRN ×2 (14:00)
[2017-07-26] MEDS ORDERED: NITROGLYCERIN-D5W 50 MG/250 ML 250 ML IV PRN (14:00)
[2017-07-26] MEDS ORDERED: ONDANSETRON HCL 4 MG/2 ML VIAL IV PUSH PRN (14:00)
[2017-07-26] MEDS ORDERED: ALBUMIN 5% INJ 250 ML IV PRN (14:00)
[2017-07-26] MEDS ORDERED: Post-op Orders (for Pharmacy) MISC OTHER ONE (14:00)
[2017-07-26] MEDS ORDERED: MEPERIDINE HCL 25 MG/ML VIAL IV PUSH PRN (14:00)
[2017-07-26] MEDS ORDERED: RESP: RACEPINEPHRINE 2.25% 0.5 ML NEB NEB PRN (14:00)
[2017-07-26] MEDS ORDERED: hydrALAZINE HCL 20 MG/ML VIAL IV PUSH PRN (14:00)
[2017-07-26] MEDS ORDERED: INSULIN REGULAR (IV INFUSION) 100 UNITS in SODIUM CHLORIDE 0.9% INJ 99 ML IV PRN (14:00)
[2017-07-26] MEDS: ceFAZolin 2 GM PREMIX 50 ML IV SCH ×2 (15:22→21:07)
[2017-07-26] MEDS: ACETAMINOPHEN 1000 MG/100 ML 100 ML IV SCH ×2 (15:23→21:06)
[2017-07-26] MEDS: SODIUM CHLORIDE 0.9% FLUSH 10 ML FLUSH IV FLUSH SCH ×2 (15:23→21:06)
--- NOTE | 2017-07-26 15:24 | PD.OP ---
cc: Panchito Garza MD; Markie Aguirre MD Operative Report Date of Surgery: Jul 26, 2017 Preoperative Diagnosis: Postoperative Diagnosis: Procedure: 1. Mitral Valve Replacement with a 31 mm Medtronic Mosaic Cinch Valve 2. Pump Assisted Coronary Artery Bypass Grafting x 3 with Left Internal Mammary Artery (FISHER) to Left Anterior Descending (LAD), reverse saphenous vein graft to OM2, reverse saphenous vein graft to the RPDA 3. Closure of Patent Foramen [place] 4. Left Leg Endoscopic Vein [place] 5. Intraoperative Vein Mapping. Surgeon: Panchito Garza [employer](s): rEich Quintero Operation and Findings: PREOPERATIVE DIAGNOSES 1. Severe Mitral Insufficiency 2. Multi-vessel Coronary Artery Disease POSTOPERATIVE DIAGNOSES Same SURGICAL PROCEDURE 1. Mitral Valve Replacement with a 31 mm Medtronic Mosaic Cinch Valve 2. Pump Assisted Coronary Artery Bypass Grafting x 3 with Left Internal Mammary Artery (FISHER) to Left Anterior Descending (LAD), reverse saphenous vein graft to OM2, reverse saphenous vein graft to the RPDA 3. Closure of Patent Foramen [place] 4. Left Leg Endoscopic Vein [place] 5. Intraoperative Vein Mapping. METAL AND PLASTIC HEATER GARRISON [place] ANESTHESIA General endotracheal. REHABILITATION SERVICES AIDE Franchesca Potter CRNA, Francisco Perez MD PREPARATION ChloraPrep. NEEDLE, SPONGE AND INSTRUMENT COUNT Correct. DRAINS Two 32-Czech mediastinal tube. COMPLICATIONS None. INDICATIONS The patient is an 66 -year-old with severe mitral regurgitation and multi- vessel CAD, presenting for surgical correction of the above pathology. DESCRIPTION OF PROCEDURE The patient was brought to the operating room and placed supine on the OR table. Following the induction of adequate general endotracheal anesthesia and placement of appropriate monitoring devices, intraoperative vein mapping was performed which revealed -caliber conduit in bilateral lower extremities. The patient was then prepped and draped in the standard sterile fashion. Next, 2500 units of intravenous heparin was given. The left greater saphenous vein was harvested endoscopically. This appeared to be a suitable-caliber conduit. Simultaneously, a median sternotomy was performed and the left internal mammary artery dissected free off the posterior sternal table. The patient was systemically heparinized and anticoagulation monitored by serial ACT measurements. The internal mammary artery had good pulsatile flow in it and was a decent-caliber conduit. The pericardium was then divided in the midline, the cradle created and targets analyzed. Then 2 pursestring sutures of 2-0 Ethibond were placed on the aorta proximal to the takeoff of the innominate artery, a purse-string of 4-0 Prolene was placed on the superior vena cava and a final 4-0 Prolene was placed on the right atrium for the inferior vena cava. At this point, aortic and bicaval venous cannulae were introduced and attached to the arterial and venous components of the bypass circuit respectively. Antegrade cardioplegia cannula was also placed. The patient was placed on cardiopulmonary bypass and core cooling initiated to a temperature of 34 degrees centigrade. At this point, all anastomoses were performed in a beating- heart pump-assisted fashion using the Veratect stabilizing system. The left internal mammary artery was anastomosed to the mid LAD in an end-to-side fashion using 7-0 Prolene. Segment of saphenous vein graft was then anastomosed to the OM2 in an end-to-side fashion using 7-0 Prolene. The next segment was anastomosed to the RPDA in an end-to-side fashion using 7-0 Prolene. The proximal anastomoses were then constructed to the ascending aorta in a running manner using 6-0 Prolene. All anastomotic sites were inspected and appeared to be hemostatic and patent. The crossclamp was applied and 2 L of antegrade cardioplegia solution ( [employer] HTK) was given in the aortic root as well as through the bypass grafts , in addition to topical cooling with slushed saline. Upon achieving adequate diastolic arrest of the heart a right atriotomy was performed. Transeptal approach to the mitral valve was taken. During this, it was noted that he had septal fenestrations of a PFO. This area was included in the septal incision line. The mitral valve was inspected and it was noted that both anterior and posterior leaflets had ruptured chords with prolapsing segments of A2, P2, A3 and P3, and therefore plans were made to proceed with replacement of the mitral valve. The anterior leaflet was excised and the posterior leaflet and chords preserved. Horizontal mattress sutures of interrupted 2-0 Ethibond were placed on the mitral annulus with pledgets on the atrial side. After adequate sizing, a 31 mm Ober[place] Space Mitral valve was brought in the surgical field and the sutures passed through the skirt and the valve was situated and anchored with the Cor-Knot device. This appeared to be a good fit. Gradual rewarming was initiated and the septum closed closed in 2 layers. The area of the PFo was incorporated into the closure line. This was with 4-0 Prolene; the 1st layer being horizontal mattress, the 2nd layer being running baseball stitch. The right atrium was similarly closed in two layers of 4-0 Prolene. The cross clamp was removed and upon achieving normothermic cardiac activity, patient was weaned from CPB without any difficulty. Transesophageal echocardiography revealed a well-situated mitral prosthesis with no evidence of perivalvular leak and no mitral stenosis or regurgitation. Protamine was given. Decannulation was performed and all sites were inspected for hemostasis. At this point the closure was undertaken. The pericardium was reapproximated in the midline. Two 32-Fr chest tubes were placed, and the sternum was reapproximated using stainless steel sternal wires. The musculo-fascial layer was then closed in 3 layers. The endoscopic vein harvest site was closed in 2 layers. The patient tolerated the procedure well and was transferred to open heart recovery in stable condition. Panchito Garza MD Jul 26, 2017 15:24
[2017-07-26] MEDS: RESP: ALBUTEROL 2.5 MG/IPRATROPIUM 0.5 MG NEB (SCH) NEB ×2 (15:47→21:02)
--- NOTE | 2017-07-26 15:57 | RADRPT ---
EXAM DATE/TIME: 07/26/2017 15:06 [facility] COMPARISON: CHEST PA & LAT, July 04, 2017, 16:16. INDICATIONS : S/p cabg. MEDICAL HISTORY : Hypertension. Angina. hyperlipidemia, skin ca, coronary artery disease SURGICAL HISTORY : Coronary artery stent. ENCOUNTER: Initial ACUITY: 1 day PAIN SCORE: Non-responsive. LOCATION: Bilateral chest FINDINGS: ETT at the level of clavicles. Right IJ central line in the atrial caval junction. Mediastinal drain and left-sided chest tube in place. Mild bibasilar airspace disease likely reflecting atelectasis. No significant pneumothorax. Cardiomediastinal contours are within normal limits. Remainder of the exam is unchanged. CONCLUSION: 1. Expected postoperative features of cardiac surgery with lines and tubes, as above. 2. No pneumothorax. Bradly Sanders MD on July 26, 2017 at 15:53 Board Certified Radiologist. This report was verified electronically.
[2017-07-26] MEDS ORDERED: LIDOCAINE/D5W 2000 MG/500 ML 500 ML ONE (17:03)
[2017-07-26] MEDS ORDERED: LIDOCAINE/D5W 2000 MG/500 ML 500 ML IV SCH (18:00)
[2017-07-26] MEDS: ATORVASTATIN 20 MG TAB PO SCH (21:06)
[2017-07-26] MEDS: AMIODARONE 200 MG TAB PO SCH (21:06)
[2017-07-26] MEDS: POTASSIUM CHLOR 20 MEQ PREMIX 100 ML IV PRN (21:07)
[2017-07-26] MEDS ORDERED: CALCIUM CHLORIDE INJ 1 GM in SODIUM CHLORIDE 0.9% INJ 100 ML IV ONE (22:00)
[2017-07-27] VITALS (14 sets, daily range): BP systolic 94–158; BP diastolic 65–89; PULSE 65–79; RESP 16–20; TEMP 98.1–100.1; O2SAT 95–97
[2017-07-27] MEDS: RESP: ALBUTEROL 2.5 MG/IPRATROPIUM 0.5 MG NEB (SCH) NEB ×3 (03:57→20:58)
[2017-07-27] MEDS: ACETAMINOPHEN 1000 MG/100 ML 100 ML IV SCH ×2 (04:17→07:56)
[2017-07-27] MEDS: PANTOPRAZOLE SOD 40 MG DELAYED RELEASE TAB PO SCH (04:22)
[2017-07-27] MEDS: ceFAZolin 2 GM PREMIX 50 ML IV SCH ×3 (04:22→21:28)
--- NOTE | 2017-07-27 04:26 | RADRPT ---
EXAM DATE/TIME: 07/27/2017 03:42 [facility] COMPARISON: CHEST SINGLE AP, July 26, 2017, 15:06. INDICATIONS : Short of breath. MEDICAL HISTORY : Hypertension. Angina. hyperlipidemia, skin ca, coronary artery disease SURGICAL HISTORY : Coronary artery stent. CABG. ENCOUNTER: Subsequent ACUITY: 2 days PAIN SCORE: 0/10 LOCATION: Bilateral chest FINDINGS: The cardiac silhouette is enlarged in transverse diameter. A left chest tube is in place. There is no evidence of pneumothorax. There is left lower lobe atelectasis versus pneumonia. CONCLUSION: 1. There is no evidence of pneumothorax. 2. Left lower lobe atelectasis versus pneumonia.8 Allen White MD on July 27, 2017 at 4:24 Board Certified Radiologist. This report was verified electronically.
[2017-07-27 04:36] LABS: MEAN CELL VOLUME 90.2 FL (80.0-100.0); MEAN CORPUSCULAR HEMOGLOBIN 31.1 PG (27.0-34.0); MEAN CORPUSCULAR HGB CONC 34.5 % (32.0-36.0); PLATELET COUNT 114 TH/MM3 (150-450); RED BLOOD COUNT 4.32 MIL/MM3 (4.50-5.90); RED CELL DISTRIBUTION WIDTH 13.9 % (11.6-17.2); REVIEW FLAG FINAL; WHITE BLOOD COUNT 10.3 TH/MM3 (4.0-11.0)
[2017-07-27 04:58] LABS: BICARBONATE 24.8 MEQ/L (21.0-32.0); MAGNESIUM 2.2 MG/DL (1.5-2.5); POTASSIUM 3.8 MEQ/L (3.5-5.1)
[2017-07-27] MEDS: KETOROLAC TROMETHAMINE 30 MG/ML (IVP) VIAL IV PUSH PRN ×2 (07:57→16:11)
[2017-07-27] MEDS: POTASSIUM CHLOR 20 MEQ PREMIX 100 ML IV PRN (08:24)
[2017-07-27] MEDS ORDERED: POTASSIUM CHLOR 40 MEQ PREMIX 100 ML IV ONE (08:30)
[2017-07-27] MEDS ORDERED: SOD PHOSPHATE/SOD BIPHOSPHATE (ADULT) ENEMA 133ML RECTAL PRN (09:00)
[2017-07-27] MEDS: MAGNESIUM HYDROXIDE SUSP 30 ML CUP PO SCH (09:00)
[2017-07-27] MEDS ORDERED: BISACODYL 10 MG SUPP RECTAL PRN (09:00)
[2017-07-27] MEDS ORDERED: DEXTROSE 50% IN WATER 50 ML VIAL(D50) IV PUSH PRN (09:00)
[2017-07-27] MEDS ORDERED: GLUCAGON 1 MG/ML VIAL OTHER PRN (09:00)
[2017-07-27] MEDS ORDERED: MULTIVITAMIN INJ 10 ML, THIAMINE INJ 500 MG, FOLIC ACID INJ 1 MG in SODIUM CHLORID 0.9%... IV SCH (09:00)
[2017-07-27] MEDS ORDERED: POTASSIUM CHLORIDE 20 MEQ CONTROLLED RELEASE TAB PO ONE (09:30)
[2017-07-27] MEDS ORDERED: FUROSEMIDE 40 MG/4 ML VIAL IV PUSH ONE (09:30)
--- NOTE | 2017-07-27 09:35 | EKG ---
Date Performed: 07/27/2017 Time Performed: 02:01:16 PTAGE: 66 years EKG: Sinus rhythm Possible inferior infarct - age undetermined Abnormal ECG PREVIOUS TRACING : 07/04/2017 09.07 DOCTOR: Anil Watts Interpretating Date/Time 07/27/2017 09:33:01
[2017-07-27] MEDS: THIAMINE HCL 100 MG TAB PO SCH (09:40)
[2017-07-27] MEDS: AMIODARONE 200 MG TAB PO SCH ×2 (09:41→21:28)
[2017-07-27] MEDS: FOLIC ACID 1 MG TAB PO SCH (09:41)
[2017-07-27] MEDS: METOPROLOL TARTRATE 25 MG TAB PO SCH ×2 (09:41→21:28)
[2017-07-27] MEDS: MULTIVITAMINS/MINERALS THERAPEUTIC TAB PO SCH (09:41)
[2017-07-27] MEDS: ASPIRIN 81 MG CHEW TAB PO SCH (09:42)
[2017-07-27] MEDS: SODIUM CHLORIDE 0.9% FLUSH 10 ML FLUSH IV FLUSH SCH ×2 (09:43→21:28)
[2017-07-27] MEDS: INSULIN ASPART SUPPLEMENTAL SCALE SQ SCH ×4 (10:00→21:29)
--- NOTE | 2017-07-27 13:09 | PD.CAR.PN ---
CVT Progress Note Subjective/Hospital Course: 66-year-old male, a patient of Dr. Adriel Peña and Dr.Domenic Ochoa who apparently has had history of mitral valve regurgitation, has been followed over the past 10 years and went in for regular checkup, when they did an echocardiogram that showed worsening mitral regurgitation. 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 He also had a carotid ultrasound at that time which was unremarkable. He underwent cardiac cath today by Dr. Aguirre which showed 20% left main disease, proximal LAD 30%, mid distal LAD 70%. The was diagonal 80%, the circ had 90%. The RCA 80% mid lesion. EF 50%, 4+ MR. We were consulted to evaluate for coronary artery bypass grafting. He was electively admitted for Coronary artery bypass grafting and Mitral valve replacement PAST MEDICAL HISTORY : Coronary artery disease, Hyperlipidemia, Hypertension , Pre diabetes surgery: 07/26 Mitral Valve Replacement with a 31 mm Medtronic Mosaic Cinch Valve, Pump Assisted Coronary Artery Bypass Grafting x 3 with Left Internal Mammary Artery (FISHER) to Left Anterior Descending (LAD), reverse saphenous vein graft to OM2, reverse saphenous vein graft to the RPDA, Closure of Patent Foramen [place], Left Leg Endoscopic Vein [place] extubated after surgery, crystalloid 3500cc, cell saver 1100cc, [id number], urine 850 cc 07/27 pt had short burst SVT/ AFib last pm , was started on Lidociane gtt, since off on po amiodarone , BB , also dose of lasix given stable for transfer to stepdown Objective: GENERAL: SKIN: Warm and dry.prevena dressing to chest, pavel wrap to left leg HEAD: Normocephalic. EYES: No scleral icterus. No injection or drainage. NECK: Supple, trachea midline. No JVD or lymphadenopathy. CARDIOVASCULAR: Regular rate and rhythm without murmurs, gallops, or rubs. RESPIRATORY: Breath sounds equal bilaterally. No accessory muscle use. diminished in the bases , chest tube to wall suction / drained 120cc/ 12 hrs GASTROINTESTINAL: Abdomen soft, non-tender, nondistended. MUSCULOSKELETAL: No cyanosis, or edema. BACK: Nontender without obvious deformity. No CVA tenderness. Vital Signs Date Time Temp Pulse Resp B/P (MAP) Pulse Ox O2 Delivery O2 Flow Rate FiO2 07/27/17 11:41 96 Room Air 07/27/17 11:41 98.3 68 16 154/81 (105) 96 07/27/17 11:41 68 07/27/17 09:57 16 07/27/17 09:46 16 07/27/17 08:59 97 Nasal Cannula 2.00 07/27/17 08:00 96 Nasal Cannula 2.00 07/27/17 08:00 98.7 79 16 139/79 (99) 96 109/89 (96) 07/27/17 08:00 79 07/27/17 03:32 95 Nasal Cannula 3.00 07/27/17 03:00 100.1 76 20 140/75 (96) 95 94/65 (75) 07/27/17 03:00 74 07/26/17 23:24 97 Nasal Cannula 3.00 07/26/17 23:20 85 07/26/17 23:00 99.4 83 20 129/71 (90) 97 109/78 (88) 07/26/17 21:02 96 Nasal Cannula 3.00 07/26/17 19:47 99.8 07/26/17 19:37 97 Nasal Cannula 3.00 07/26/17 19:00 81 07/26/17 19:00 99.7 81 20 118/71 (87) 97 130/65 (86) 07/26/17 18:49 80 119/63 07/26/17 18:03 95 Nasal Cannula 4.00 07/26/17 17:00 98.7 84 12 122/79 (93) 96 138/70 (92) 07/26/17 16:45 95 Nasal Cannula 3.00 07/26/17 16:14 98.6 07/26/17 16:00 98.7 84 12 124/77 (93) 96 129/70 (89) 07/26/17 15:40 95 Nasal Cannula 4 07/26/17 15:40 50 07/26/17 15:40 96 Nasal Cannula 3.00 07/26/17 15:25 79 154/73 07/26/17 15:00 95 Mechanical Ventilator 50 07/26/17 15:00 82 07/26/17 15:00 98.4 74 10 134/83 (100) 95 142/72 (95) 07/26/17 14:15 97.4 80 19 86/56 (66) 89 95/53 (67) Manual Cuff/Palpation 07/26/17 14:15 50 07/26/17 14:15 80 07/26/17 14:15 89 Mechanical Ventilator 50 07/26/17 14:15 98.6 07/26/17 14:05 95 50 Labs: Laboratory Tests Test 07/27/17 04:00 White Blood Count 10.3 TH/MM3 (4.0-11.0) Red Blood Count 4.32 MIL/MM3 (4.50-5.90) Hemoglobin 13.4 GM/DL (13.0-17.0) Hematocrit 39.0 % (39.0-51.0) Mean Corpuscular Volume 90.2 FL (80.0-100.0) Mean Corpuscular Hemoglobin 31.1 PG (27.0-34.0) Mean Corpuscular Hemoglobin Concent 34.5 % (32.0-36.0) Red Cell Distribution Width 13.9 % (11.6-17.2) Platelet Count 114 TH/MM3 (150-450) Mean Platelet Volume 9.2 FL (7.0-11.0) Blood Urea Nitrogen 17 MG/DL (7-18) Creatinine 0.97 MG/DL (0.60-1.30) Random Glucose 136 MG/DL (74-106) Calcium Level 7.8 MG/DL (8.5-10.1) Magnesium Level 2.2 MG/DL (1.5-2.5) Sodium Level 140 MEQ/L (136-145) Potassium Level 3.8 MEQ/L (3.5-5.1) Chloride Level 106 MEQ/L (98-107) Carbon Dioxide Level 24.8 MEQ/L (21.0-32.0) Anion Gap 9 MEQ/L (5-15) Estimat Glomerular Filtration Rate 77 ML/MIN (>89) Result Diagram: 07/27/170 07/27/17399 Telemetry: NSR, short nonsustained episode of SVT (1) S/P MVR (mitral valve replacement) (2) S/P CABG x 3 Plan: on ASA, statin , BB , amiodarone OOB, ambulate, pulm toileting nebs ezpap acapella gentle diuresis leave chest tubes in (3) Coronary artery disease (4) Mitral regurgitation (5) Hyperlipemia Plan: on statin (6) Hypertension Plan: eval to resume ARB Nessa Hall Jul 27, 2017 13:09
--- NOTE | 2017-07-27 13:15 | HHI.FF ---
Face to Face Verification Diagnosis: (1) Coronary artery disease (2) Hyperlipemia (3) Mitral regurgitation (4) Hypertension (5) S/P CABG x 3 (6) S/P MVR (mitral valve replacement) Physical Therapy Order: Evaluate and Treat Speech Therapy Order: To Improve: Speech and communication skills Home Health Nursing Order: Signs/symptoms of disease process Medication education-adverse effect Wound care and dressing changes Nursing assessment with vital signs Instructions: Heart and Vascular Surgery patients *Special attention to sternal dressing Mandatory frequency Assess and evaluation, 4 days in a row The next week 3X week 2 times a week for 4 weeks 1 time a week for 5 weeks Schedule Heart and Vascular patients for full 60 day certification period Initial visit Review Open Heart Surgery Discharge Instructions (Sternal precautions, Activity, Elastic hose, Incision care, Driving, Incentive spirometry, Smoking, [place], Work and other) Need Betadine to paint incision Medication reconciliation Importance of follow up care/ check on appointments Make calendar record temperature daily When to call [facility] nurse, review instructions, phone list Incentive Spirometry, demonstration Visit 1- Begin discharge instruction for patient family and/ or caregiver using teach back method- Signs and symptoms of infection Disease characteristics Medicines and side effects Foods and nutrition/ appetite Infection control/ hand washing/ hygiene Visit 2- Continue teaching Discharge instructions- include additional information on smoking cessation , sternal dressing (sternal vac) Visit 3- Continue teaching- Cough and deep breathing, incision monitoring. Choose my plate Visit 4- Continue teaching- Discuss limitations Discuss how they are feeling Discuss progress toward goals Remaining visits- continue teaching and monitoring PREVENA Single Use Negative Wound Therapy System Caregiver Instruction Sheet 1. A Prevena dressing system was applied to the chest incision during surgery , to promote wound healing. It works via a suction device (negative pressure wound therapy) to remove low to moderate levels of exudate (drainage) and infectious materials. We recommend that the device stay in place for up to seven days, from day of surgery. 2. Day of Surgery__07/26/17 Day of Removal 08/02/17 3. The dressing should only be removed by a health primary care md. Please arrange removal of device to coincide with Home Health visit and or with Nursing staff at Rehab 4. If skin reddening or irritation of skin occurs, or excessive drainage, please notify the Cardiovascular Surgeons office at [phone]. 5. Light showering is permissible; however the pump should be disconnected and placed in safe location, where it will not get wet. The dressing should not be exposed to direct spray or submerged in water. No bath tub / shower only. Ensure the end of the tubing attached to the dressing is facing down so that water does not enter the top of the tube. 6. To remove Prevena dressing: press purple button to turn off device / remove the suction. Then disconnect the tubing from the pump. The fixation strips should be stretched away from the skin and the dressing lifted at one corner and peeled back until it has been fully removed. 7. After removal, it is ok to shower daily using liquid dial soap and clean wash cloth, rinse and pat dry, and leave incision open to air dry. For any concerns regarding Prevena dressing, and or wounds, please contact Jayla Moses, patient navigator at [phone] or notify the Cardiovascular Surgeons office at [phone]. Incentive spirometry Q1 hr x 10, while awake, also use acapella device hourly whole awake Sternal Breast Bone Precautions: NO pushing or pulling, ( pt must use sternal pillow to support chest with all activities and with coughing ( takes up to 3 months breast bone to heal ) Daily incision care: ok to shower daily, no tub bath. Wash all incisions with liquid dial soap, clean wash cloth to each site, rinse and pat dry. Observe for any signs of infection, such as drainage which is dark yellow, angelo, green or foul smelling. Immediately report to the surgeon any drainage from the chest incision, or legs, and for any abnormal drainage from the chest tube sites. Notify surgeon if any temp >101.5 degrees F. When specialty dressing removed/ or if you do not have one, continue to shower daily as above, then rinse and pat incision dry and paint with betadine daily x 5 days. Allow steri strips to fall off if you have any. Avoid lotions, creams, salves, oils, etc. for the first month Please see attached forms for additional instructions regarding post Open Heart specialty wound vacuum dressings. HAKEEM or Prevena , Dressing to be removed by Nursing staff on __08/02/ F/U appointment: as per DC instructions: PCP in 2 weeks, CV surgeon 2 weeks, Terminal Operations Manager 3-4 weeks For any questions regarding incisions/ dressing / meds / post op care or above Symptoms, Tuesday 8am-5pm Heart & Vascular Surgery Office ( Dr. Garza & Dr. Snyder), After Hours / Nights (5pm -8am) Weekends and Holidays Please call [facility] ([facility]) Charge Nurse I have seen patient Chinmay Weston on 07/27/17. My clinical findings support the need for the requested home health care services because: Deconditioned w/ increased weakness I certify that my clinical findings support that this patient is homebound because: Post-op weakness Nessa Hall Jul 27, 2017 13:15
[2017-07-27] MEDS: ATORVASTATIN 20 MG TAB PO SCH (21:28)
[2017-07-27] MEDS: DOCUSATE SODIUM 100 MG CAP PO SCH (21:28)
[2017-07-27] MEDS: SENNOSIDES 8.6 MG TAB PO SCH (21:28)
[2017-07-28] VITALS (29 sets, daily range): BP systolic 127–147; BP diastolic 64–78; PULSE 58–82; RESP 14–17; TEMP 98.4–98.9; O2SAT 93–100
[2017-07-28] MEDS: INSULIN ASPART SUPPLEMENTAL SCALE SQ SCH ×5 (02:00→21:00)
[2017-07-28] MEDS: KETOROLAC TROMETHAMINE 30 MG/ML (IVP) VIAL IV PUSH PRN (02:16)
[2017-07-28] MEDS: PANTOPRAZOLE SOD 40 MG DELAYED RELEASE TAB PO SCH (05:52)
[2017-07-28 06:15] LABS: AUTOMATED NEUTROPHIL # 8.8 TH/MM3 (1.8-7.7); BASOPHIL % 0.2 % (0.0-2.0); EOSINOPHIL % 0.1 % (0.0-4.0); HEMATOCRIT 33.3 % (39.0-51.0); LYMPH % 10.2 % (9.0-44.0); LYMPHOCYTE # 1.1 TH/MM3 (1.0-4.8); MEAN CELL VOLUME 89.5 FL (80.0-100.0); MEAN CORPUSCULAR HEMOGLOBIN 30.8 PG (27.0-34.0); MEAN CORPUSCULAR HGB CONC 34.4 % (32.0-36.0); MONO % 8.8 % (0.0-8.0); NEUT % 80.7 % (16.0-70.0); PLATELET COUNT 88 TH/MM3 (150-450); RED BLOOD COUNT 3.72 MIL/MM3 (4.50-5.90); RED CELL DISTRIBUTION WIDTH 13.9 % (11.6-17.2); WHITE BLOOD COUNT 10.9 TH/MM3 (4.0-11.0)
[2017-07-28 06:22] LABS: HEMO FLAGS AUTO DIFF
[2017-07-28 06:39] LABS: MAGNESIUM 2.3 MG/DL (1.5-2.5)
[2017-07-28] MEDS: RESP: ALBUTEROL 2.5 MG/IPRATROPIUM 0.5 MG NEB (SCH) NEB ×3 (07:52→20:34)
[2017-07-28 08:01] LABS: PLATELET ESTIMATE SMEAR LOW (NORMAL); PLATELET MORPHOLOGY NORMAL (NORMAL); SCAN/DIFF AUTO DIFF CONFIRMED
[2017-07-28] MEDS: MAGNESIUM HYDROXIDE SUSP 30 ML CUP PO SCH (09:00)
[2017-07-28] MEDS ORDERED: POTASSIUM CHLORIDE 20 MEQ CONTROLLED RELEASE TAB PO ONE (09:15)
[2017-07-28] MEDS ORDERED: FUROSEMIDE 40 MG/4 ML VIAL IV PUSH ONE (09:15)
[2017-07-28] MEDS: ASPIRIN 81 MG CHEW TAB PO SCH (09:18)
[2017-07-28] MEDS: THIAMINE HCL 100 MG TAB PO SCH (09:18)
[2017-07-28] MEDS: MULTIVITAMINS/MINERALS THERAPEUTIC TAB PO SCH (09:18)
[2017-07-28] MEDS: AMIODARONE 200 MG TAB PO SCH ×2 (09:18→21:14)
[2017-07-28] MEDS: DOCUSATE SODIUM 100 MG CAP PO SCH ×2 (09:19→21:13)
[2017-07-28] MEDS: POLYETHYLENE GLYCOL 17 GM PKG PO SCH (09:19)
[2017-07-28] MEDS: FOLIC ACID 1 MG TAB PO SCH (09:19)
[2017-07-28] MEDS: SODIUM CHLORIDE 0.9% FLUSH 10 ML FLUSH IV FLUSH SCH ×2 (09:19→21:13)
[2017-07-28] MEDS: METOPROLOL TARTRATE 25 MG TAB PO SCH ×2 (09:19→21:14)
[2017-07-28 13:47] LABS: PROTHROMBIN TIME - PATIENT 11.6 SEC (9.8-11.6)
--- NOTE | 2017-07-28 15:55 | PD.CAR.PN ---
CVT Progress Note Subjective/Hospital Course: 66-year-old male, a patient of Dr. Adriel Peña and Dr.Domenic Ochoa who apparently has had history of mitral valve regurgitation, has been followed over the past 10 years and went in for regular checkup, when they did an echocardiogram that showed worsening mitral regurgitation. 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 He also had a carotid ultrasound at that time which was unremarkable. He underwent cardiac cath today by Dr. Aguirre which showed 20% left main disease, proximal LAD 30%, mid distal LAD 70%. The was diagonal 80%, the circ had 90%. The RCA 80% mid lesion. EF 50%, 4+ MR. We were consulted to evaluate for coronary artery bypass grafting. He was electively admitted for Coronary artery bypass grafting and Mitral valve replacement PAST MEDICAL HISTORY : Coronary artery disease, Hyperlipidemia, Hypertension , Pre diabetes surgery: 07/26 Mitral Valve Replacement with a 31 mm Medtronic Mosaic Cinch Valve, Pump Assisted Coronary Artery Bypass Grafting x 3 with Left Internal Mammary Artery (FISHER) to Left Anterior Descending (LAD), reverse saphenous vein graft to OM2, reverse saphenous vein graft to the RPDA, Closure of Patent Foramen [place], Left Leg Endoscopic Vein [place] extubated after surgery, crystalloid 3500cc, cell saver 1100cc, [id number], urine 850 cc 07/27 pt had short burst SVT/ AFib last pm , was started on Lidociane gtt, since off on po amiodarone , BB , also dose of lasix given stable for transfer to stepdown 07/28 doing weaning off oxygen chest tube removed without difficulty start coumadin today goal 2.5-3 x 3 months remains in NSR Objective: GENERAL: SKIN: Warm and dry. prevena dressing to chest , incision intact to left EVH site technician: Normocephalic. EYES: No scleral icterus. No injection or drainage. NECK: Supple, trachea midline. No JVD or lymphadenopathy. CARDIOVASCULAR: Regular rate and rhythm without murmurs, gallops, or rubs. RESPIRATORY: Breath sounds equal bilaterally. No accessory muscle use. GASTROINTESTINAL: Abdomen soft, non-tender, nondistended. MUSCULOSKELETAL: No cyanosis, or edema. BACK: Nontender without obvious deformity. No CVA tenderness. Vital Signs Date Time Temp Pulse Resp B/P (MAP) Pulse Ox O2 Delivery O2 Flow Rate FiO2 07/28/17 14:07 64 07/28/17 13:18 68 07/28/17 12:00 96 Room Air 07/28/17 12:00 98.4 68 16 142/78 (99) 96 07/28/17 10:40 14 07/28/17 10:12 63 07/28/17 09:42 58 07/28/17 08:13 72 07/28/17 08:13 95 Room Air 07/28/17 07:53 100 21 07/28/17 07:50 98.9 72 16 147/73 (97) 95 07/28/17 07:14 71 07/28/17 06:07 75 07/28/17 05:04 60 07/28/17 04:31 72 07/28/17 03:29 98.4 70 17 147/75 (99) 96 07/28/17 03:29 60 07/28/17 03:29 96 Room Air 07/28/17 02:59 60 07/28/17 01:05 66 07/28/17 00:00 64 07/27/17 23:40 98.1 70 18 152/65 (94) 96 07/27/17 23:40 98 Room Air 07/27/17 23:00 65 07/27/17 22:00 78 07/27/17 21:02 97 21 07/27/17 21:00 76 07/27/17 20:00 68 07/27/17 19:30 97 Room Air 07/27/17 19:30 98.2 74 18 154/75 (101) 97 Arterial Line 07/27/17 19:00 73 07/27/17 17:13 18 07/27/17 16:18 76 07/27/17 16:15 96 Room Air 07/27/17 16:15 98.5 76 16 158/81 (106) 96 07/27/17 16:15 76 Labs: Laboratory Tests Test 07/28/17 05:55 07/28/17 12:34 White Blood Count 10.9 TH/MM3 (4.0-11.0) Red Blood Count 3.72 MIL/MM3 (4.50-5.90) Hemoglobin 11.4 GM/DL (13.0-17.0) Hematocrit 33.3 % (39.0-51.0) Mean Corpuscular Volume 89.5 FL (80.0-100.0) Mean Corpuscular Hemoglobin 30.8 PG (27.0-34.0) Mean Corpuscular Hemoglobin Concent 34.4 % (32.0-36.0) Red Cell Distribution Width 13.9 % (11.6-17.2) Platelet Count 88 TH/MM3 (150-450) Mean Platelet Volume 9.2 FL (7.0-11.0) Neutrophils (%) (Auto) 80.7 % (16.0-70.0) Lymphocytes (%) (Auto) 10.2 % (9.0-44.0) Monocytes (%) (Auto) 8.8 % (0.0-8.0) Eosinophils (%) (Auto) 0.1 % (0.0-4.0) Basophils (%) (Auto) 0.2 % (0.0-2.0) Neutrophils # (Auto) 8.8 TH/MM3 (1.8-7.7) Lymphocytes # (Auto) 1.1 TH/MM3 (1.0-4.8) Monocytes # (Auto) 1.0 TH/MM3 (0-0.9) Eosinophils # (Auto) 0.0 TH/MM3 (0-0.4) Basophils # (Auto) 0.0 TH/MM3 (0-0.2) CBC Comment AUTO DIFF Differential Comment AUTO DIFF CONFIRMED Platelet Estimate LOW (NORMAL) Platelet Morphology Comment NORMAL (NORMAL) Blood Urea Nitrogen 24 MG/DL (7-18) Creatinine 1.00 MG/DL (0.60-1.30) Random Glucose 119 MG/DL (74-106) Calcium Level 8.0 MG/DL (8.5-10.1) Magnesium Level 2.3 MG/DL (1.5-2.5) Sodium Level 134 MEQ/L (136-145) Potassium Level 4.0 MEQ/L (3.5-5.1) Chloride Level 102 MEQ/L (98-107) Carbon Dioxide Level 25.0 MEQ/L (21.0-32.0) Anion Gap 7 MEQ/L (5-15) Estimat Glomerular Filtration Rate 74 ML/MIN (>89) Prothrombin Time 11.6 SEC (9.8-11.6) Prothromb Time International Ratio 1.0 RATIO Result Diagram: 07/28/17 0555 07/28/17 0555 (1) S/P MVR (mitral valve replacement) Plan: start Coumadin, goal 2.5-3 x 90 days (2) S/P CABG x 3 Plan: on ASA, statin , BB , amiodarone OOB, ambulate, pulm toileting nebs ezpap acapella gentle diuresis leave chest tubes in (3) Coronary artery disease (4) Mitral regurgitation (5) Hyperlipemia Plan: on statin (6) Hypertension Plan: eval to resume ARB Nessa Hall Jul 28, 2017 15:55
[2017-07-28] MEDS: WARFARIN SOD 5 MG TAB PO SCH (16:29)
[2017-07-28] MEDS: ATORVASTATIN 20 MG TAB PO SCH (21:13)
[2017-07-28] MEDS: SENNOSIDES 8.6 MG TAB PO SCH (21:14)
[2017-07-29] VITALS (27 sets, daily range): BP systolic 124–143; BP diastolic 64–77; PULSE 57–86; RESP 16–17; TEMP 97.6–99.1; O2SAT 94–97
[2017-07-29 05:44] LABS: INTERNATIONAL NORMALIZED RATIO 1.3 RATIO
--- NOTE | 2017-07-29 05:52 | RADRPT ---
EXAM DATE/TIME: 07/29/2017 05:17 [place] COMPARISON: CHEST SINGLE AP, July 27, 2017, 3:42. INDICATIONS : Status post chest tube removal. MEDICAL HISTORY : Hypertension. Angina. hyperlipidemia, skin ca, coronary artery disease. SURGICAL HISTORY : Coronary artery stent. CABG. ENCOUNTER: Subsequent ACUITY: 4 - 6 days PAIN SCORE: Non-responsive. LOCATION: chest FINDINGS: The cardiac silhouette is normal in transverse diameter. Median sternotomy wires are present. There i s left lower lobe atelectasis versus pneumonia. There is subsegmental atelectasis in the right base. Left chest tube has been removed. There is no evidence of pneumothorax. CONCLUSION: 1. There is no evidence of pneumothorax. Allen White MD on July 29, 2017 at 5:50 Board Certified Radiologist. This report was verified electronically.
[2017-07-29 06:04] LABS: BICARBONATE 28.8 MEQ/L (21.0-32.0); MAGNESIUM 2.4 MG/DL (1.5-2.5); POTASSIUM 3.8 MEQ/L (3.5-5.1)
[2017-07-29] MEDS: PANTOPRAZOLE SOD 40 MG DELAYED RELEASE TAB PO SCH (06:22)
[2017-07-29] MEDS: RESP: ALBUTEROL 2.5 MG/IPRATROPIUM 0.5 MG NEB (SCH) NEB ×2 (07:39→12:44)
[2017-07-29] MEDS: INSULIN ASPART SUPPLEMENTAL SCALE SQ SCH ×4 (08:00→20:59)
[2017-07-29] MEDS: SODIUM CHLORIDE 0.9% FLUSH 10 ML FLUSH IV FLUSH SCH ×2 (09:00→20:43)
[2017-07-29] MEDS: POLYETHYLENE GLYCOL 17 GM PKG PO SCH (09:41)
[2017-07-29] MEDS: METOPROLOL TARTRATE 25 MG TAB PO SCH ×2 (09:42→20:42)
[2017-07-29] MEDS: FOLIC ACID 1 MG TAB PO SCH (09:42)
[2017-07-29] MEDS: MAGNESIUM HYDROXIDE SUSP 30 ML CUP PO SCH (09:42)
[2017-07-29] MEDS: DOCUSATE SODIUM 100 MG CAP PO SCH ×2 (09:42→20:42)
[2017-07-29] MEDS: MULTIVITAMINS/MINERALS THERAPEUTIC TAB PO SCH (09:42)
[2017-07-29] MEDS: AMIODARONE 200 MG TAB PO SCH (09:42)
[2017-07-29] MEDS: ASPIRIN 81 MG CHEW TAB PO SCH (09:42)
[2017-07-29] MEDS: THIAMINE HCL 100 MG TAB PO SCH (09:46)
[2017-07-29] MEDS ORDERED: POTASSIUM CHLORIDE 20 MEQ CONTROLLED RELEASE TAB PO ONE (10:30)
[2017-07-29] MEDS ORDERED: COMMODE 3-IN-11 MIS (15:20)
[2017-07-29] MEDS: WARFARIN SOD 5 MG TAB PO SCH (16:51)
[2017-07-29] MEDS ORDERED: THERM PO (17:27)
[2017-07-29] MEDS ORDERED: METO25TA3 PO (17:27)
[2017-07-29] MEDS ORDERED: LOSA25TA PO (17:27)
[2017-07-29] MEDS ORDERED: OXYC1TAB63 PO (17:27)
[2017-07-29] MEDS ORDERED: DOCU1CAP39 PO (17:27)
[2017-07-29] MEDS ORDERED: ASPI81 PO (17:27)
--- NOTE | 2017-07-29 17:32 | HHI.DS ---
Discharge Summary Admission Date Jul 26, 2017 at 05:36 Discharge Date: Jul 30, 2017 Admitting Diagnosis mitral valve insufficiency CAD (1) Coronary artery disease ICD Codes: I25.10 - Atherosclerotic heart disease of [place] coronary artery without angina pectoris (2) Hyperlipemia ICD Codes: E78.5 - Hyperlipidemia, unspecified (3) Mitral regurgitation ICD Codes: I34.0 - Nonrheumatic mitral (valve) insufficiency (4) Hypertension ICD Codes: I10 - Essential (primary) hypertension (5) S/P MVR (mitral valve replacement) ICD Codes: Z95.2 - Presence of prosthetic heart valve (6) S/P CABG x 3 ICD Codes: Z95.1 - Presence of aortocoronary bypass graft Procedures Procedure: 1. Mitral Valve Replacement with a 31 mm Medtronic Mosaic Cinch Valve 2. Pump Assisted Coronary Artery Bypass Grafting x 3 with Left Internal Mammary Artery (FISHER) to Left Anterior Descending (LAD), reverse saphenous vein graft to OM2, reverse saphenous vein graft to the RPDA 3. Closure of Patent Foramen [place] 4. Left Leg Endoscopic Vein [place] 5. Intraoperative Vein Mapping. Brief History 66-year-old male, a patient of Dr. Adriel Peña and Dr.Domenic Ochoa who apparently has had history of mitral valve regurgitation, has been followed over the past 10 years and went in for regular checkup, when they did an echocardiogram that showed worsening mitral regurgitation. 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 He also had a carotid ultrasound at that time which was unremarkable. He underwent cardiac cath today by Dr. Aguirre which showed 20% left main disease, proximal LAD 30%, mid distal LAD 70%. The was diagonal 80%, the circ had 90%. The RCA 80% mid lesion. EF 50%, 4+ MR. We were consulted to evaluate for coronary artery bypass grafting. He was electively admitted for Coronary artery bypass grafting and Mitral valve replacement PAST MEDICAL HISTORY : Coronary artery disease, Hyperlipidemia, Hypertension , Pre diabetes CBC/BMP: 07/28/17 0555 07/29/17 0453 Significant Findings Laboratory Tests Test 07/27/17 04:00 07/28/17 05:55 07/28/17 12:34 07/29/17 04:53 Red Blood Count 4.32 MIL/MM3 (4.50-5.90) 3.72 MIL/MM3 (4.50-5.90) Platelet Count 114 TH/MM3 (150-450) 88 TH/MM3 (150-450) Random Glucose 136 MG/DL (74-106) 119 MG/DL (74-106) 114 MG/DL (74-106) Calcium Level 7.8 MG/DL (8.5-10.1) 8.0 MG/DL (8.5-10.1) 8.1 MG/DL (8.5-10.1) Estimat Glomerular Filtration Rate 77 ML/MIN (>89) 74 ML/MIN (>89) 71 ML/MIN (>89) Hemoglobin 11.4 GM/DL (13.0-17.0) Hematocrit 33.3 % (39.0-51.0) Neutrophils (%) (Auto) 80.7 % (16.0-70.0) Monocytes (%) (Auto) 8.8 % (0.0-8.0) Neutrophils # (Auto) 8.8 TH/MM3 (1.8-7.7) Monocytes # (Auto) 1.0 TH/MM3 (0-0.9) Platelet Estimate LOW (NORMAL) Blood Urea Nitrogen 24 MG/DL (7-18) Sodium Level 134 MEQ/L (136-145) Test 07/29/17 05:25 Prothrombin Time 15.0 SEC (9.8-11.6) Imaging Last Impressions Chest X-Ray 07/29/17 0600 Signed Impressions: Service Date/Time: Saturday, July 29, 2017 05:17 - CONCLUSION: 1. There is no evidence of pneumothorax. Allen White MD PE at Discharge GENERAL: SKIN: Warm and dry. prevena to chest, tape guardado to upper abdomen HEAD: Normocephalic. EYES: No scleral icterus. No injection or drainage. NECK: Supple, trachea midline. No JVD or lymphadenopathy. CARDIOVASCULAR: Regular rate and rhythm without murmurs, gallops, or rubs. RESPIRATORY: Breath sounds equal bilaterally. No accessory muscle use. GASTROINTESTINAL: Abdomen soft, non-tender, nondistended. MUSCULOSKELETAL: No cyanosis, or edema. BACK: Nontender without obvious deformity. No CVA tenderness. Hospital Course 07/27 pt had short burst SVT/ AFib last pm , was started on Lidociane gtt, since off on po amiodarone , BB , also dose of lasix given stable for transfer to stepdown 07/28 doing weaning off oxygen chest tube removed without difficulty start coumadin today goal 2.5-3 x 3 months 07/29 pt had some junctional rhythm also intermittent SR with prolonged pr interval, amiodarone stopped on lovenox, continue coumadin on room air eval for dc in am Pt Condition on Discharge: Good Discharge Disposition: Disch w/ Home Health Serv Discharge Instructions DIET: Follow Instructions for: Heart Healthy Diet, Coumadin (Warfarin) Diet Activities you can perform: Full Weight Bearing, Shower Only-No Bath Activities to avoid: Strenuous Activity, Driving Additional Activity Instructio: no lifting > 8 lbs or gallon of milk New Medications: Commode 3-in-1 (Commode 3-in-1) 1 Mis Mis EA .ROUTE DIRECTED, #1 0 Refills Losartan (Losartan) 25 Mg Tab 25 MG PO DAILY for Blood Pressure Management, #30 TAB 2 Refills Aspirin (Tgt Aspirin) 81 Mg Chw 81 MG PO DAILY for Blood Clot Prevention, #30 EA 2 Refills Docusate Sodium (Dok) 100 Mg Cap 100 MG PO BID for Constipation, #60 CAP 0 Refills Metoprolol Tartrate (Metoprolol Tartrate) 25 Mg Tab 25 MG PO BID for Blood Pressure Management, #60 TAB 2 Refills hold for systolic BP <100 HR<60 Multiple Vitamins W/ Minerals (Thera M Plus) 1 Tab 1 TAB PO DAILY for multi vitamin, #30 TAB 2 Refills Oxycodone HCl/Acetaminophen (Oxycodone-Acetaminophen 5-325) 5 Mg-325 Mg Tablet 1 TAB PO Q4H PRN for PAIN SCALE 1 TO 5, #40 TAB 0 Refills Continued Medications: Atorvastatin (Atorvastatin) 20 Mg Tab 20 MG PO HS for Cholesterol Management, #30 TAB 0 Refills Hydrochlorothiazide (Hydrochlorothiazide) 25 Mg Tab 25 MG PO DAILY, #30 TAB 0 Refills Discontinued Medications: Aspirin DR (Aspirin EC) 325 Mg Tabdr 325 MG PO DAILY, TAB 0 Refills Fish Oil-Cholecalciferol (Fish Oil + D3) 1,200-1,000 Mg-Unit Cap 2 CAP PO DAILY for Nutritional Supplement, #30 CAP 0 Refills Losartan (Losartan) 100 Mg Tab 100 MG PO DAILY for Blood Pressure Management, #30 TAB 0 Refills Nitroglycerin SL (Nitrostat SL) 0.4 Mg Subl 0.4 MG SL DIRECTED PRN for CHEST PAIN, #100 TAB.SL 0 Refills 1 tablet under the tongue as needed for chest pain. Repeat every 5 minutes for a total of 3 DOSES or call 911 if NO relief. Nessa HallP Jul 29, 2017 17:32
--- NOTE | 2017-07-29 17:36 | PD.CAR.PN ---
CVT Progress Note Subjective/Hospital Course: 66-year-old male, a patient of Dr. Adriel Peña and Dr.Domenic Ochoa who apparently has had history of mitral valve regurgitation, has been followed over the past 10 years and went in for regular checkup, when they did an echocardiogram that showed worsening mitral regurgitation. 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 He also had a carotid ultrasound at that time which was unremarkable. He underwent cardiac cath today by Dr. Aguirre which showed 20% left main disease, proximal LAD 30%, mid distal LAD 70%. The was diagonal 80%, the circ had 90%. The RCA 80% mid lesion. EF 50%, 4+ MR. We were consulted to evaluate for coronary artery bypass grafting. He was electively admitted for Coronary artery bypass grafting and Mitral valve replacement PAST MEDICAL HISTORY : Coronary artery disease, Hyperlipidemia, Hypertension , Pre diabetes surgery: 07/26 Mitral Valve Replacement with a 31 mm Medtronic Mosaic Cinch Valve, Pump Assisted Coronary Artery Bypass Grafting x 3 with Left Internal Mammary Artery (FISHER) to Left Anterior Descending (LAD), reverse saphenous vein graft to OM2, reverse saphenous vein graft to the RPDA, Closure of Patent Foramen [place], Left Leg Endoscopic Vein [place] extubated after surgery, crystalloid 3500cc, cell saver 1100cc, [id number], urine 850 cc 07/27 pt had short burst SVT/ AFib last pm , was started on Lidociane gtt, since off on po amiodarone , BB , also dose of lasix given stable for transfer to stepdown 07/28 doing weaning off oxygen chest tube removed without difficulty start coumadin today goal 2.5-3 x 3 months remains in NSR 07/29 intermittent junctional rhythm and prolonged pr interval amiodarone dc on lovenox and coumadin eval for dc in am + BM Objective: GENERAL: SKIN: Warm and dry. prevena dressing to chest, incision intact to left leg HEAD: Normocephalic. EYES: No scleral icterus. No injection or drainage. NECK: Supple, trachea midline. No JVD or lymphadenopathy. CARDIOVASCULAR: Regular rate and rhythm without murmurs, gallops, or rubs. RESPIRATORY: Breath sounds equal bilaterally. No accessory muscle use. GASTROINTESTINAL: Abdomen soft, non-tender, nondistended. MUSCULOSKELETAL: No cyanosis, or edema. BACK: Nontender without obvious deformity. No CVA tenderness. Vital Signs Date Time Temp Pulse Resp B/P (MAP) Pulse Ox O2 Delivery O2 Flow Rate FiO2 07/29/17 15:00 97 Room Air 07/29/17 15:00 70 07/29/17 15:00 98.2 72 16 143/77 (99) 97 07/29/17 14:00 72 07/29/17 13:00 67 07/29/17 12:00 68 07/29/17 11:00 98.7 74 16 124/69 (87) 97 07/29/17 11:00 97 Room Air 07/29/17 11:00 72 07/29/17 10:00 76 07/29/17 09:00 83 07/29/17 08:00 73 07/29/17 07:40 97 21 07/29/17 07:00 57 07/29/17 07:00 98.3 75 16 133/72 (92) 96 07/29/17 07:00 96 Room Air 07/29/17 06:00 60 07/29/17 05:02 62 07/29/17 04:12 64 07/29/17 03:32 63 07/29/17 03:31 99.1 63 16 128/64 (85) 94 07/29/17 03:31 94 Room Air 07/29/17 02:23 60 07/29/17 01:00 65 07/29/17 00:00 63 07/28/17 23:10 98.4 64 16 127/64 (85) 96 07/28/17 23:10 96 Room Air 07/28/17 23:00 61 07/28/17 22:00 74 07/28/17 21:00 70 07/28/17 20:47 97 Room Air 07/28/17 20:47 98.8 73 16 132/69 (90) 97 07/28/17 20:34 96 21 07/28/17 20:00 72 07/28/17 19:00 78 07/28/17 18:04 82 Result Diagram: 07/28/17 0555 07/29/17 0453 (1) S/P MVR (mitral valve replacement) Plan: start Coumadin, goal 2.5-3 x 90 days (2) S/P CABG x 3 Plan: on ASA, statin , BB , OOB, ambulate, pulm toileting nebs ezpap acapella gentle diuresis chest tubes dc (3) Coronary artery disease (4) Mitral regurgitation (5) Hyperlipemia Plan: on statin (6) Hypertension Plan: eval to resume ARB Nessa Hall Jul 29, 2017 17:36
[2017-07-29] MEDS: SENNOSIDES 8.6 MG TAB PO SCH (20:41)
[2017-07-29] MEDS: ATORVASTATIN 20 MG TAB PO SCH (20:42)
[2017-07-30] VITALS (14 sets, daily range): BP systolic 135–139; BP diastolic 64–70; PULSE 57–68; RESP 17–18; TEMP 98.2–98.3; O2SAT 96
[2017-07-30 04:45] LABS: INTERNATIONAL NORMALIZED RATIO 2.7 RATIO; PROTHROMBIN TIME - PATIENT 30.9 SEC (9.8-11.6)
[2017-07-30] MEDS: PANTOPRAZOLE SOD 40 MG DELAYED RELEASE TAB PO SCH (06:05)
[2017-07-30] MEDS: INSULIN ASPART SUPPLEMENTAL SCALE SQ SCH (07:05)
[2017-07-30] MEDS ORDERED: WARF-58 PO (08:31)
[2017-07-30] MEDS: FOLIC ACID 1 MG TAB PO SCH (08:44)
[2017-07-30] MEDS: ASPIRIN 81 MG CHEW TAB PO SCH (08:44)
[2017-07-30] MEDS: SODIUM CHLORIDE 0.9% FLUSH 10 ML FLUSH IV FLUSH SCH (08:44)
[2017-07-30] MEDS: DOCUSATE SODIUM 100 MG CAP PO SCH (08:44)
[2017-07-30] MEDS: THIAMINE HCL 100 MG TAB PO SCH (08:44)
[2017-07-30] MEDS: METOPROLOL TARTRATE 25 MG TAB PO SCH (08:44)
[2017-07-30] MEDS: POLYETHYLENE GLYCOL 17 GM PKG PO SCH (08:45)
[2017-07-30] MEDS: MAGNESIUM HYDROXIDE SUSP 30 ML CUP PO SCH (08:45)
[2017-07-30] MEDS: MULTIVITAMINS/MINERALS THERAPEUTIC TAB PO SCH (08:45)
--- NOTE | 2017-07-30 10:58 | EKG ---
Date Performed: 07/29/2017 Time Performed: 09:44:10 PTAGE: 66 years EKG: Inferior infarct - age undetermined With first degree A-V block Nonspecific ST and T wave a bnormalities Abnormal ECG PREVIOUS TRACING : 07/27/2017 02.01 Compared to previous tracing ,MO interval more prolonged. DOCTOR: Robbi Pham Interpretating Date/Time 07/30/2017 10:56:12
== END 2017-07-30 12:44 | disposition home health service (06) | DRG 220 ==
LOC: HSDI 05:36 → HCVI 14:00 → HCPC 07-27 09:25
PROVIDERS: ADMIT Thoracic Surgery (Cardiothoracic Vascular Surgery); ATTEND Thoracic Surgery (Cardiothoracic Vascular Surgery)
PROC: 06BQ4ZZ Excision of Left Saphenous Vein, Percutaneous Endoscopic Approach (ICD-10-PCS; 2017-07-26)
PROC: 02Q50ZZ Repair Atrial Septum, Open Approach (ICD-10-PCS; 2017-07-26)
PROC: 5A1221Z Performance of Cardiac Output, Continuous (ICD-10-PCS; 2017-07-26)
PROC: B246ZZ4 Ultrasonography of Right and Left Heart, Transesophageal (ICD-10-PCS; 2017-07-26)
PROC: 02RG0JZ Replacement of Mitral Valve with Synthetic Substitute, Open Approach (ICD-10-PCS; principal; 2017-07-26 07:12)
PROC: 02100Z9 Bypass Coronary Artery, One Artery from Left Internal Mammary, Open Approach (ICD-10-PCS; 2017-07-26 07:12)
PROC: 021109W Bypass Coronary Artery, Two Arteries from Aorta with Autologous Venous Tissue, Open Approach (ICD-10-PCS; 2017-07-26 07:12)
DX: I34.0 Nonrheumatic mitral (valve) insufficiency (principal); I97.89 Other postprocedural complications and disorders of the circulatory system, not elsewhere classified; Q21.1 Atrial septal defect; I48.91 Unspecified atrial fibrillation; I47.1 Supraventricular tachycardia; I10 Essential (primary) hypertension; I25.10 Atherosclerotic heart disease of native coronary artery without angina pectoris; E78.5 Hyperlipidemia, unspecified; R73.03 Prediabetes; I44.0 Atrioventricular block, first degree; Z95.5 Presence of coronary angioplasty implant and graft; Z85.828 Personal history of other malignant neoplasm of skin; Z87.891 Personal history of nicotine dependence
CPT/HCPCS: 71010; 80048; 82948; 83735; 85014; 85025; 85027; 85610; 86850; 86900; 86901; 86920; 87015; 87070; 87102; 87116; 87205; 87206; 88305; 88311; 93005; 94002; 94150; 94640; 94664; 94667; 94668; C9248; J0131; J0690; J1644; J1815; J1885; J1940; J2001; J2250; J3010; J3370; J3480; J7040; J7050; J7120